=== PATIENT | female | born 1975 | race Caucasian/White ===

== ENCOUNTER → 2018-03-08 | Outpatient (CLI) | payer MEDICAID ==
--- NOTE | 2018-03-08 13:41 | WOMENS IMAGING REPORT ---
EXAM DESCRIPTION: 3D DX MAMMO BILAT; U/S BREAST UNILATERAL, COMPL COMPLETED DATE/TIME: 03/08/2018 9:27 am; 03/08/2018 10:01 am REASON FOR STUDY: MASTODYNIA; LT BREAST LUMP/PAIN N64.4 MASTODYNIA N63.0 UNSPECIFIED LUMP IN UNSPE CIFIED BREAST COMPARISON: None. TECHNIQUE: Standard craniocaudal and mediolateral oblique views of each breast recorded using digita l acquisition and breast tomosynthesis. Additional left breast 90 mediolateral view. Because of left breast pain and palpable abnormality, left breast ultrasound was performed. LIMITATIONS: None. FINDINGS: RIGHT BREAST MASSES: No suspicious masses. CALCIFICATIONS: No new or suspicious calcifications. ARCHITECTURAL DISTORTION: None. DEVELOPING DENSITY: None. ASYMMETRY: None noted. OTHER: No other significant findings. LEFT BREAST MASSES: Multiple mammographic masses left breast, the largest is 2.5 cm in the upper outer quadrant a bout 3 cm from the nipple. CALCIFICATIONS: No new or suspicious calcifications. ARCHITECTURAL DISTORTION: None. DEVELOPING DENSITY: None. ASYMMETRY: None noted. OTHER: No other significant finding. Read with the assistance of CAD: .[facility] - R2 Cenova Version 1.3 .[facility] - R2 Cenova Version 1.3 .[facility] - R2 Cenova Version 2.4 .[facility] - R2 Cenova Version 2.4 .[facility] - R2 Gun [employer]isher Version 9.2 Left breast ultrasound: Ultrasound left breast upper outer quadrant was performed. In the area of breast pain, at about the 1 to 2 o'clock position 4 cm from the nipple, a thick walled cyst is present measuring 2.3 x 1.1 x 2 cm in size with good acoustic through transmission. No mural nodule. Mild wall thickening. This co uld represent a inflamed or previously ruptured cyst. Six-month follow-up mammogram and ultrasound r ecommended. Elsewhere in the left breast upper outer quadrant, a 2.5 x 2 x 1 cm simple cyst is present at the 1 o 'clock position about 3 cm from the nipple. A 1 cm well-circumscribed hypoechoic solid nodule is pre sent in the upper outer quadrant 1 o'clock position, likely a small fibroadenoma. High up in the [place], a 9 x 5 mm intramammary lymph node and 6 mm intramammary lymph node are present. IMPRESSION: No mammographic/tomosynthesis evidence for malignancy right breast No mammographic/tomosynthesis evidence for malignancy left breast. Multiple left breast parenchymal cysts are present. Small probable fibroadenoma. Thick walled cyst is also present. Six-month follo w-up mammograms and ultrasound recommended for the left upper outer quadrant fibroadenoma and thick w alled probably benign cyst. BREAST DENSITY: c. The breasts are heterogeneously dense, which may obscure small masses. BIRAD: 3 Probably benign finding. Initial short-interval follow-up suggested. RECOMMENDATION: RECOMMENDED FOLLOW UP: Six-month follow-up left breast mammography/tomosynthesis and ultrasound left upper outer quadrant SPECIFIC INTERVENTION/IMAGING/CONSULTATION RECOMMENDED:As above COMMUNICATION:Patient notified by letter COMMENT: The patient has been notified of the results by letter per MQSA requirements. Additional no tification policies are in place for contacting patient with suspicious or incomplete findings. Quality ID #225: The [employer] recommends an annual screening mammogram for women aged 40 years or over. This facility utilizes a reminder system to ensure that all patients receive reminder letters, and/or direct phone calls for appointments. This includes reminders for routine scr eening mammograms, diagnostic mammograms, or other Breast Imaging Interventions when appropriate. Th is patient will be placed in the appropriate reminder system. The [place] [employer] (ACR) has developed recommendations for screening MRI of the breast s in certain patient populations, to be used in conjunction with mammography. Breast MRI surveillanc e may be appropriate for women with more than 20% lifetime risk of developing breast cancer as deter mined by genetic testing, significant family history of the disease, or history of mantle radiation f or Hodgkins Disease. ACR Practice Guidelines 2008. DBT Technology DBT is a type of tomographic mammography. With conventional mammography, overlapping breast tissue ma y make lesions difficult to detect, even with good compression. DBT uses an x-ray tube that rotates a round the breast, taking images at different angles. These images are then combined to create thin sl ices of the breast that the radiologist can view as a 3D reconstruction. The [employer] unit can perform full-field digital mammograms (2D imaging); or DBT (3D imaging); or both, in a combination mode that quickly performs both the mammogram and the tomosynthesis scan while the breast is still compressed. PQRS 6045F: Fluoroscopic imaging is not utilized for breast tomosynthesis. TECHNICAL DOCUMENTATION: FINDING NUMBER: (1) ASSESSMENT: (1) JOB ID: [id number] [employer]- All Rights Reserved Reading location - IP/workstation name: [email or web address]-[email or web address]
== END ==
LOC: WI 09:17
PROVIDERS: ATTEND Specialist
DX: Z12.31 Encounter for screening mammogram for malignant neoplasm of breast (principal); N64.4 Mastodynia; N63.0 Unspecified lump in unspecified breast
CPT/HCPCS: 76641; 77066; G0279; 77062